=== PATIENT | male | born 1930 | race Caucasian/White ===

== ENCOUNTER → 2018-04-28 | Outpatient (CLI) | payer MEDICARE, BC | END | disposition home or self-care (01) | LOC: CVU 14:29 | PROVIDERS: ATTEND Internal Medicine Cardiovascular Disease | DX: I70.213 Atherosclerosis of native arteries of extremities with intermittent claudication, bilateral legs (principal); I27.21 Secondary pulmonary arterial hypertension; R55 Syncope and collapse; I48.91 Unspecified atrial fibrillation | CPT/HCPCS: 93306; 93922 ==